=== PATIENT | male | born 1990 ===

== ENCOUNTER 2020-04-27 23:41 | Observation (INO) | payer OTHER ==
[~2020-04-27] VITALS: Ht 185.4 cm; Wt 78.6 kg
--- NOTE | 2020-04-28 00:10 | NUR ---
assumned care of pt. pt here for multiple episodes of diarrhea today. pt reports that he has had no relief of sx after immodium x5 in the last 12 hours. pt denies N/V, and sates that he currently has no pain but that he has intemittent diffuse abd cramping. denies any recent change in diet. denies recent meals out. denies any recent sick contacts. pt reports that he has a hx of IBS
--- NOTE | 2020-04-28 00:20 | NUR ---
pt made aware that stool sample needed. hat and specimen cup given
[2020-04-28 00:35] LABS: BASOPHILS % (AUTO) 0 % (0-1); EOSINOPHILS # (AUTO) 0.06 x10^3/uL (0-0.4); EOSINOPHILS % (AUTO) 0 % (1-7); LYMPHOCYTES # (AUTO) 1.47 x10^3/uL (1-3.4); LYMPHOCYTES % (AUTO) 9 % (22-44); MD NO; MEAN CORPUSCULAR HGB CONC 33.2 g/dL (33.2-36.2); MEAN CORPUSCULAR VOLUME 90.5 fL (81-97); MEAN PLATELET VOLUME 9.5 fL (7.4-10.4); MONOCYTES # (AUTO) 0.43 x10^3/uL (0.2-0.8); MONOCYTES % (AUTO) 3 % (2-9); NEUTROPHILS # (AUTO) 13.91 x10^3/uL (1.8-6.8); NEUTROPHILS % (AUTO) 88 % (42-75); PLATELET COUNT 209 x10^3/uL (130-400); RED BLOOD COUNT 6.83 x10^6/uL (4.38-5.82); RED CELL DISTRIBUTION WIDTH 12.5 % (9.4-14.8)
--- NOTE | 2020-04-28 00:46 | NUR ---
IV fluid infusing. stool sample has bene collected an sent. pt resting in position of comfort. updated on POC. SO at bedside
[2020-04-28 00:47] LABS: ALANINE AMINOTRANSFERASE 66 U/L (12-78); ALBUMIN 5.7 g/dL (3.4-5.0); ANION GAP 8 mmol/L (5-15); CALCIUM 10.9 mg/dL (8.5-10.1); CHLORIDE 104 mmol/L (98-107)
[2020-04-28 00:49] LABS: ALKALINE PHOSPHATASE 92 U/L (45-117); BILIRUBIN,TOTAL 0.7 mg/dL (0.2-1.0); TOTAL PROTEIN 10.3 g/dL (6.4-8.2)
[2020-04-28 01:19] LABS: CLOSTRIDIUM DIFFICILE ANTIGEN NEGATIVE; CLOSTRIDIUM DIFFICILE TOXIN NEGATIVE (Negative)
--- NOTE | 2020-04-28 01:30 | NUR ---
late note: 0 IV fluids completed
--- NOTE | 2020-04-28 01:45 | NUR ---
report to Carla Miles for lunch
[2020-04-28] MEDS ORDERED: ONDANSETRON 2MG/ML, 2ML ONE (01:58)
[2020-04-28] MEDS ORDERED: MORPHINE SULFATE 4 MG/ML, 1ML ONE (01:58)
[2020-04-28] MEDS ORDERED: ONDANSETRON 2MG/ML, 2ML IVPush ONE (02:00)
[2020-04-28] MEDS ORDERED: SODIUM CHLORIDE 0.9% 1,000ML IVBOLUS ONE ×2 (02:00)
[2020-04-28] MEDS ORDERED: SODIUM CHLORIDE FLUSH 10ML SYR IVF ONE ×2 (02:00)
[2020-04-28] MEDS ORDERED: MORPHINE SULFATE 4 MG/ML, 1ML IVPush PRN (02:00)
--- NOTE | 2020-04-28 02:08 | NUR ---
BREAK RN: PT HAD ONE EPISODE OF VOMITING, VOMITED APPROX 400ML OF FLUID. PT REPORTS RELIEF AFTER VOMITING, STATES PAIN IS NOW A 6/10, PRIOR PAIN WAS A 9/10. PT MEDICATED FOR NAUSEA AND PAIN, 2ND LITER OF FLUIDS STARTED.
--- NOTE | 2020-04-28 02:13 | NUR ---
BREAK RN: PT TO CT
[2020-04-28] MEDS ORDERED: OMNIPAQUE 350 MG/ML, 100ML BOTTLE ONE (02:22)
--- NOTE | 2020-04-28 02:30 | NUR ---
BREAK RN: PT BACK FROM CT. STATES PAIN IS STILL MINIMAL AT THIS TIME. 11/20
--- NOTE | 2020-04-28 03:14 | NUR ---
lab at bedside to draw cultures Stephanie at bedside for recheck
--- NOTE | 2020-04-28 03:15 | NUR ---
pt reports that pain has significantly decreased and denies nausea. resting in position of comfort
[2020-04-28] MEDS ORDERED: PIPERACILLIN/TAZO/PMX 3.375GM 50 ML ONE (03:19)
[2020-04-28] MEDS ORDERED: PIPERACILLIN/TAZO/PMX 3.375GM 50 ML IV ONE (03:30)
--- NOTE | 2020-04-28 03:39 | NUR ---
IV ABX infusing. Dr. Ham has been to bedside for recheck. pt to be admitted
[2020-04-28] MEDS: HEPARIN 5,000 UNITS/ML, 1ML SQ SCH ×2 (04:00→11:24)
[2020-04-28] MEDS ORDERED: morphine SULFATE 10 MG/ML, 1ML IVPush PRN (04:00)
[2020-04-28] MEDS ORDERED: ACETAMINOPHEN 325 MG TABLET PO PRN (04:00)
[2020-04-28] MEDS ORDERED: ONDANSETRON 2MG/ML, 2ML IVPush PRN (04:00)
[2020-04-28] MEDS ORDERED: HYDROcodone/APAP 5/325 TABLET PO PRN (04:00)
--- NOTE | 2020-04-28 04:07 | NUR ---
bed assignment recieved. attempting to call report
--- NOTE | 2020-04-28 04:15 | NUR ---
pt to floor via faviola
[2020-04-28 04:34] VITALS: BP 123/85
[2020-04-28] MEDS: LACTATED RINGERS 1,000 ML IV SCH ×2 (05:39→13:52)
[2020-04-28] MEDS: CEFTRIAXONE PMX 1GM/50ML 50 ML IV SCH (05:40)
[2020-04-28] MEDS: METRONIDAZOLE PMX 500MG/100ML 100 ML IV SCH ×3 (06:25→17:47)
[2020-04-28 07:30] VITALS: BP 114/77
[2020-04-28] MEDS ORDERED: OMEPRAZOLE 20 MG CAPSULE.DR ONE (09:43)
[2020-04-28] MEDS ORDERED: OMEPRAZOLE 20 MG CAPSULE.DR PO SCH (10:00)
[2020-04-28] MEDS: SUCRALFATE 1 GM/10 ML UDC PO SCH ×3 (11:24→20:44)
[2020-04-28 13:55] VITALS: BP 135/98
[2020-04-28 20:36] VITALS: BP 117/80
[2020-04-28] MEDS: FAMOTIDINE 20 MG/2 ML IVPush SCH (20:44)
[2020-04-29] MEDS: METRONIDAZOLE PMX 500MG/100ML 100 ML IV SCH ×3 (00:19→12:18)
[2020-04-29 00:54] VITALS: BP 130/90
[2020-04-29 05:15] LABS: ALANINE AMINOTRANSFERASE 47 U/L (12-78); ALBUMIN 3.8 g/dL (3.4-5.0); ANION GAP 5 mmol/L (5-15); CALCIUM 8.9 mg/dL (8.5-10.1); CHLORIDE 108 mmol/L (98-107)
[2020-04-29 05:18] LABS: ALKALINE PHOSPHATASE 64 U/L (45-117); BILIRUBIN,TOTAL 0.4 mg/dL (0.2-1.0); CREATININE 1.12 mg/dL (0.7-1.3); TOTAL PROTEIN 6.6 g/dL (6.4-8.2)
[2020-04-29] MEDS: CEFTRIAXONE PMX 1GM/50ML 50 ML IV SCH (05:21)
[2020-04-29] MEDS: SUCRALFATE 1 GM/10 ML UDC PO SCH ×2 (06:35→10:32)
[2020-04-29 07:13] VITALS: BP 123/80
[2020-04-29 07:29] LABS: MEAN CORPUSCULAR HEMOGLOBIN 30.2 pg (27.5-34.5); MEAN CORPUSCULAR VOLUME 91.3 fL (81-97); MEAN PLATELET VOLUME 8.7 fL (7.4-10.4); PLATELET COUNT 174 x10^3/uL (130-400); RED BLOOD COUNT 5.34 x10^6/uL (4.38-5.82); RED CELL DISTRIBUTION WIDTH 12.9 % (9.4-14.8)
[2020-04-29 07:58] LABS: BASOPHILS # (AUTO) 0.03 x10^3/uL (0-0.1); BASOPHILS % (AUTO) 0 % (0-1); EOSINOPHILS # (AUTO) 0.12 x10^3/uL (0-0.4); EOSINOPHILS % (AUTO) 2 % (1-7); LYMPHOCYTES # (AUTO) 1.85 x10^3/uL (1-3.4); LYMPHOCYTES % (AUTO) 24 % (22-44); MD SCAN; MONOCYTES # (AUTO) 0.47 x10^3/uL (0.2-0.8); MONOCYTES % (AUTO) 6 % (2-9); NEUTROPHILS # (AUTO) 5.38 x10^3/uL (1.8-6.8); NEUTROPHILS % (AUTO) 69 % (42-75)
[2020-04-29] MEDS: FAMOTIDINE 20 MG/2 ML IVPush SCH (08:14)
[2020-04-29] MEDS ORDERED: METR-90 PO (11:52)
[2020-04-29] MEDS ORDERED: CEFI200T PO (11:52)
[2020-04-29] MEDS ORDERED: FAMO-79 PO (11:52)
[2020-04-29 12:40] VITALS: BP 125/84
== END 2020-04-29 14:32 | disposition home or self-care (01) ==
LOC: ED 04-28 05:09 → 3N 04-28 05:11 → INTOOBSV 04-28 05:11
PROVIDERS: ADMIT Family Medicine; ATTEND Hospitalist
DX: K29.60 Other gastritis without bleeding (principal); N17.0 Acute kidney failure with tubular necrosis; K52.9 Noninfective gastroenteritis and colitis, unspecified; D75.1 Secondary polycythemia; E86.0 Dehydration; G89.29 Other chronic pain; R73.9 Hyperglycemia, unspecified; R74.0 Nonspecific elevation of levels of transaminase and lactic acid dehydrogenase [LDH]; R74.8 Abnormal levels of other serum enzymes
CPT/HCPCS: 36415; 74177; 80053; 83605; 83690; 85025; 86704; 87040; 87046; 87324; 87338; 87427; 89055; 96361; 96365; 96366; 96367; 96375; 96376; 99285; G0378; J0696; J2270; J2405; J2543; J3490; J7030; J7120; Q9967; 86705; 86709; 86803; 87340